=== PATIENT | female | born 1990 | race Two or more races ===

== ENCOUNTER 2018-10-16 10:38 | Emergency (ER) | payer SELFPAY ==
[~2018-10-16] VITALS: Ht 167.6 cm; Wt 109.0 kg
[2018-10-16] MEDS ORDERED: cefTRIAXone IM 250 MG VIAL IM ONE (11:15)
[2018-10-16] MEDS ORDERED: ONDANSETRON PF 4 MG/2 ML VIAL. IV ONE (11:15)
[2018-10-16] MEDS ORDERED: FAMOTIDINE 20 MG/2 ML VIAL IVP ONE (11:15)
[2018-10-16] MEDS ORDERED: AZITHROMYCIN 250 MG TABLET. PO ONE (11:15)
[2018-10-16] MEDS ORDERED: IV NORMAL SALINE 1,000ML 1,000 ML IV ONE ×2 (11:15→13:30)
[2018-10-16 11:22] LABS: BASO # 0.1 x10^3/uL (0.0-0.2); BASO % 1 % (0-3); EOS % 0 % (0-3); HEMATOCRIT 34.9 % (36.0-47.0); HEMOGLOBIN 11.6 g/dL (12.0-15.5); LYMPH # 2.1 x10^3/uL (1.0-4.8); LYMPH % 34 % (24-48); MEAN CORPUSCULAR HEMOGLOBIN 29 pg (25-35); MEAN CORPUSCULAR HGB CONC 33 g/dL (31-37); MEAN CORPUSCULAR VOLUME 88 fL (79-100); MONO # 0.4 x10^3/uL (0.0-1.1); MONO % 7 % (0-9); NEUT # 3.6 x10^3uL (1.8-7.7); NEUT % 58 % (31-73); PLATELET COUNT 287 x10^3/uL (140-400); RED BLOOD COUNT 3.97 x10^6/uL (3.50-5.40); RED CELL DISTRIBUTION WIDTH 14.4 % (11.5-14.5); WHITE BLOOD COUNT 6.2 x10^3/uL (4.0-11.0)
[2018-10-16 11:37] LABS: ALBUMIN/GLOBULIN RATIO 0.8 (1.0-1.7); CALCIUM 8.2 mg/dL (8.5-10.1); CREATININE 0.5 mg/dL (0.6-1.0); POTASSIUM 3.8 mmol/L (3.5-5.1); TOTAL BILIRUBIN 0.2 mg/dL (0.2-1.0); TOTAL PROTEIN 6.8 g/dL (6.4-8.2)
--- NOTE | 2018-10-16 13:55 | RAD ---
Examination: Obstetric ultrasound limited HISTORY: History of abdominal pain, COMPARISON: None available FINDINGS: Single living intrauterine identified with heart rate of 145 bpm. Ultrasound age is 31 weeks and 1 day with estimated date of delivery by ultrasound 12/17/2018. Estimated weight 1747 g+/- 259g. Cephalic index 73.2. Head circumference to abdominal circumference 1.03. Femur length to biparietal diameter 80.9. Femur length to head circumference 21.9. Femur length abdominal circumference 22.6. The biparietal diameter measures 7.6 cm corresponding to 30 weeks and 3 days. Head circumference measures 28.1 cm corresponding to 30 weeks and 6 days. Abdominal circumference measures 27.1 cm corresponding to 31 weeks and 2 days. Femur length measures 6.1 cm corresponding to 31 weeks and 6 days. Cervical length measures 4.8 cm Three-vessel cord is seen. Fluid in the bladder is seen. Placenta is in the posterior wall. Placental grade is grade 0. IMPRESSION: Single intrauterine as described above. Electronically signed by: Herson Agarwal MD (10/16/2018 1:52 PM) [id number]
[2018-10-16] MEDS ORDERED: metroNIDAZOLE 500 MG TABLET PO ONE (14:15)
[2018-10-16 14:39] LABS: BACTERIA,URINE MANY /HPF (0-FEW); BILIRUBIN,URINE NEG (NEG); CLARITY,URINE CLOUDY; COLOR,URINE AMBER; GLUCOSE,URINE NEG (NEG); NITRITE,URINE NEG (NEG); SQUAMOUS EPITHELIAL CELL,UR FEW /LPF; TRICHOMONAS,URINE PRESENT; UROBILINOGEN,URINE 0.2 mg/dL (0.2 mg/dL); WBC,URINE >40 /HPF (0-4)
[2018-10-16 14:41] LABS: AMPHETAMINE/METHAMPHETAMINE POS (NEG); BARBITURATES NEG (NEG); BENZODIAZEPINES NEG (NEG); CANNABINOIDS NEG (NEG); COCAINE NEG (NEG); METHADONE NEG (NEG); OPIATES NEG (NEG); PHENCYCLIDINE NEG (NEG)
[2018-10-16] MEDS ORDERED: IV NORMAL SALINE 500ML 500 ML IV ONE (14:45)
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
[2018-10-16] MEDS ORDERED: METR500T PO (15:00)
[2018-10-16] MEDS ORDERED: CEPH-264 PO (15:00)
[2018-10-16 15:16] VITALS: BP 114/63
[2018-10-17 16:08] LABS: CHLAMYDIA PROBE Negative (Negative)
== END 2018-10-16 15:17 | disposition home or self-care (01) ==
LOC: ER 10:38
DX: O23.43 Unspecified infection of urinary tract in pregnancy, third trimester (principal); N89.8 Other specified noninflammatory disorders of vagina; O98.313 Other infections with a predominantly sexual mode of transmission complicating pregnancy, third trimester; A59.09 Other urogenital trichomoniasis; O99.323 Drug use complicating pregnancy, third trimester; F15.10 Other stimulant abuse, uncomplicated; O99.313 Alcohol use complicating pregnancy, third trimester; Z3A.31 31 weeks gestation of pregnancy
CPT/HCPCS: 36415; 76815; 80053; 80307; 81001; 82550; 83690; 83735; 84702; 85025; 86901; 87086; 87491; 87591; 96372; 96374; 96375; 99285; J0456; J0696; J2405; J3490; J7040; Q0111; J7030

== ENCOUNTER 2021-06-27 17:52 | Emergency (ER) | payer MEDICAID ==
[~2021-06-27] VITALS: Ht 167.6 cm; Wt 109.0 kg
[~2021-06-27 17:52] MED LIST: CEPH-264 PO; METR500T PO
[2021-06-27 18:49] VITALS: BP 156/91
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
[2021-06-27] MEDS ORDERED: KETOROLAC 30 MG/ML VIAL. IVP ONE (19:30)
[2021-06-27] MEDS ORDERED: ONDANSETRON PF 4 MG/2 ML VIAL. IVP ONE (19:30)
[2021-06-27] MEDS ORDERED: MAGNESIUM HYDROXIDE 2,400 MG/30 ML ORAL.SUSP. PO ONE (19:30)
[2021-06-27] MEDS ORDERED: PRENATAL MULTIVITAMIN TABLET. PO ONE (19:30)
[2021-06-27] MEDS ORDERED: FAMOTIDINE 20 MG/2 ML VIAL IVP ONE (19:30)
[2021-06-27] MEDS ORDERED: IV RINGERS SOLUTION,LACTATED 1,000 ML IV SCH (19:30)
[2021-06-27 19:36] LABS: BASO # 0.1 x10^3/uL (0.0-0.2); BASO % 1 % (0-3); EOS % 0 % (0-3); HEMATOCRIT 37.8 % (36.0-47.0); HEMOGLOBIN 12.5 g/dL (12.0-15.5); LYMPH # 0.8 x10^3/uL (1.0-4.8); LYMPH % 9 % (24-48); MEAN CORPUSCULAR HEMOGLOBIN 29 pg (25-35); MEAN CORPUSCULAR HGB CONC 33 g/dL (31-37); MEAN CORPUSCULAR VOLUME 89 fL (79-100); MONO # 0.5 x10^3/uL (0.0-1.1); MONO % 6 % (0-9); NEUT # 7.3 x10^3uL (1.8-7.7); NEUT % 84 % (31-73); PLATELET COUNT 229 x10^3/uL (140-400); RED BLOOD COUNT 4.24 x10^6/uL (3.50-5.40); RED CELL DISTRIBUTION WIDTH 16.4 % (11.5-14.5); WHITE BLOOD COUNT 8.6 x10^3/uL (4.0-11.0)
[2021-06-27 20:38] LABS: CALCIUM 9.2 mg/dL (8.5-10.1); CREATININE 0.9 mg/dL (0.6-1.0); GFR 73.5; POTASSIUM 3.6 mmol/L (3.5-5.1)
[2021-06-27 20:45] LABS: BARBITURATES NEG (NEG); BENZODIAZEPINES NEG (NEG); CANNABINOIDS NEG (NEG); COCAINE POS (NEG); METHADONE NEG (NEG); OPIATES NEG (NEG); PHENCYCLIDINE NEG (NEG)
[2021-06-27 20:45] LABS: ALBUMIN 3.6 g/dL (3.4-5.0); DIRECT BILIRUBIN 0.4 mg/dL (0.0-0.2); TOTAL BILIRUBIN 1.3 mg/dL (0.2-1.0); TOTAL PROTEIN 6.9 g/dL (6.4-8.2)
[2021-06-27 20:47] LABS: AMPHETAMINE/METHAMPHETAMINE POS (NEG)
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
[2021-06-27 21:22] LABS: CLARITY,URINE CLEAR; COLOR,URINE YELLOW; GLUCOSE,URINE NEG (NEG); NITRITE,URINE POS (NEG)
[2021-06-27 21:23] LABS: BACTERIA,URINE MOD /HPF (0-FEW); SQUAMOUS EPITHELIAL CELL,UR MOD /LPF
--- NOTE | 2021-06-28 06:40 | EKG ---
[address] [address] Test Date: 2021-06-27 Test Time: 19:11:01 Pat Name: YULIANA KING Department: Room: Gender: F Vp Hr Diversity: JUSTYN : 1990 Requested By: JOE WALTER Order Number: [id number] Reading MD: Kody Blackman Measurements Intervals Halfway Rate: 117 P: 45 [place]: 138 QRS: 81 QRSD: 94 T: 19 QT: 338 QTc: 476 Interpretive Statements SINUS TACHYCARDIA Electronically Signed On 06-30-2021 13:38:15 CDT by Kody Blackman
== END 2021-06-27 22:50 | disposition home or self-care (01) ==
LOC: ER 17:52
DX: B34.9 Viral infection, unspecified (principal); R79.89 Other specified abnormal findings of blood chemistry; R74.8 Abnormal levels of other serum enzymes; F14.10 Cocaine abuse, uncomplicated; F15.10 Other stimulant abuse, uncomplicated; I10 Essential (primary) hypertension; Z98.890 Other specified postprocedural states
CPT/HCPCS: 36415; 74022; 80048; 80076; 80307; 81001; 81025; 82550; 83690; 84484; 85025; 85610; 85730; 87086; 93005; 96361; 96374; 96375; 99285; G0480; J1885; J2405; J3490; J7120